=== PATIENT | male | born 1940 | race Hispanic/Latino ===

== ENCOUNTER 2021-07-18 17:52 | Inpatient (IN) | payer MEDICARE, OTHER ==
[~2021-07-18] VITALS: Ht 167.6 cm; Wt 66.6 kg
[2021-07-18 18:04] LABS: ABG BASE EXCESS 0.9 mmol/L (-2.0-3.0); ABG OXYGEN SATURATION 90.4 % (95.0-99.0); ABG PCO2 34 mmHg (35-48)
[2021-07-18 18:18] LABS: BASOPHILS % (AUTO) 0.2 % (0.0-5.0); EOSINOPHILS % (AUTO) 0.1 % (0.0-8.0); HEMATOCRIT 42.2 % (42-54); LYMPHOCYTES % (AUTO) 11.2 % (21.0-51.0); MEAN CORPUSCULAR HGB CONC 33.6 g/dL (32.0-36.0); MONOCYTES % (AUTO) 4.7 % (3.0-13.0); PLATELET COUNT (AUTO) 256 K/uL (130-400); RED BLOOD CELL COUNT(AUTO) 4.74 MIL/uL (4.50-6.20); RED CELL DISTRIBUTION WIDTH 13.8 % (11.0-15.5); WHITE BLOOD COUNT (AUTO) 9.9 K/uL (4.8-10.8)
[2021-07-18] MEDS ORDERED: ACETAMINOPHEN 650 MG SUPPOSITORY RC ONE (18:19)
[2021-07-18] MEDS ORDERED: ACETAMINOPHEN 500 MG TABLET PO SCH (18:30)
[2021-07-18 18:35] LABS: CARBON DIOXIDE 26 mmol/L (21-32); CHLORIDE 102 mmol/L (101-111); CREATININE 2.9 mg/dL (0.5-1.5); GLOMERULAR FILTR. RATE CALC 22 mL/min (>60); GLUCOSE,RANDOM 201 mg/dL (70-105); SODIUM SERUM 140 mmol/L (136-145); UREA NITROGEN, BLOOD 68 mg/dL (7-18)
[2021-07-18 18:46] LABS: ALANINE AMINOTRANSFERASE 67 U/L (12-78); ALBUMIN 2.6 g/dL (3.5-5.0); ALCOHOL, BLOOD < 3 mg/dL (0-10); ASPARTATE AMINOTRANSFERASE 112 U/L (10-37); BILIRUBIN,TOTAL 1.4 mg/dL (0.2-1.0); CREATINE KINASE, TOTAL 129 U/L (21-232); MYOGLOBIN 696 ng/mL (10-92); TROPONIN I < 0.04 ng/mL (0.00-0.06)
[2021-07-18 18:46] LABS: APPEARANCE,URINE Cloudy (CLEAR); BILIRUBIN,URINE Small (NEGATIVE); COLOR,URINE Dark Yellow (YELLOW); GLUCOSE, URINE (UA) Negative (NEGATIVE); KETONES,URINE Trace mg/dL (NEGATIVE); LEUKOCYTE ESTERASE ,URINE Trace (NEGATIVE); NITRATE,URINE Negative (NEGATIVE); OCCULT BLOOD,URINE Trace (NEGATIVE); PROTEIN,URINE POS 2+ mg/dL (NEGATIVE)
[2021-07-18 18:53] LABS: AMPHET/METH SCREEN,URINE NEGATIVE (NEGATIVE); BARBITURATE SCREEN, URINE NEGATIVE (NEGATIVE); BENZODIAZEPINES SCREEN,URINE NEGATIVE (NEGATIVE); CANNABINOID SCREEN,URINE NEGATIVE (NEGATIVE); COCAINE SCREEN,URINE NEGATIVE (NEGATIVE); OPIATE SCREEN,URINE NEGATIVE (NEGATIVE); PHENCYCLIDINE SCREEN,URINE NEGATIVE (NEGATIVE)
[2021-07-18 19:06] LABS: AMORPHOUS SEDIMENT,UR Moderate /LPF (None Seen); BACTERIA,URINE Few /HPF (None Seen); MUCUS,URINE Few LPF (None Seen); SQUAMOUS EPITHELIAL CELL,UR Few /HPF (0-2)
[2021-07-18] MEDS ORDERED: ACETAMINOPHEN 325 MG TAB PO PRN (19:30)
[2021-07-18] MEDS ORDERED: 0.9%NACL 1000ML 1,000 ML IV SCH (19:30)
[2021-07-18] MEDS ORDERED: ERGOCALCIFEROL (VITAMIN D2) 50,000 UNIT CAPSULE PO ONE (19:30)
[2021-07-18] MEDS: DOXYCYCLINE 100MG+NS 250ML IV SCH (19:30)
[2021-07-18] MEDS: PHARMACY COMMUNICATION MISC SCH (20:39)
[2021-07-18] MEDS: DEXAMETHASONE SOD PHOSPHATE 4 MG/ML 1ML VIAL IVP SCH (20:49)
[2021-07-18] MEDS: LACTATED RINGERS 1000ML 1,000 ML IV SCH (20:49)
[2021-07-18] MEDS: ALBUTEROL INHALER 90MCG/INH IH SCH (20:49)
[2021-07-18] MEDS: CEFTRIAXONE 1G VIAL IVP SCH (20:58)
[2021-07-18] MEDS: HEPARIN 5,000 UNIT VIAL SQ SCH (21:32)
[2021-07-18 22:45] VITALS: BP 108/53
[2021-07-19] VITALS (7 sets, daily range): BP systolic 105–136; BP diastolic 62–88
[2021-07-19] MEDS: ALBUTEROL INHALER 90MCG/INH IH SCH ×4 (01:31→20:23)
[2021-07-19] MEDS: PHARMACY COMMUNICATION MISC SCH ×8 (03:10→22:00)
[2021-07-19] MEDS ORDERED: AMOX500C2 PO (03:34)
[2021-07-19] MEDS ORDERED: ACET-3194 PO (03:34)
[2021-07-19] MEDS ORDERED: MULT-1203 PO (03:34)
[2021-07-19] MEDS: DOXYCYCLINE 100MG+NS 250ML IV SCH ×2 (06:30→20:22)
[2021-07-19] MEDS: CEFTRIAXONE 1G VIAL IVP SCH ×2 (06:31→20:22)
[2021-07-19] MEDS: FAMOTIDINE 20MG TAB PO SCH (08:16)
[2021-07-19] MEDS: ZINC SULFATE 220 CAPSULE PO SCH (08:16)
[2021-07-19] MEDS: ASCORBIC ACID 500 MG TAB PO SCH (08:16)
[2021-07-19] MEDS: HEPARIN 5,000 UNIT VIAL SQ SCH ×3 (08:17→19:28)
[2021-07-19 08:25] LABS: ALBUMIN 2.3 g/dL (3.5-5.0); BILIRUBIN,TOTAL 0.7 mg/dL (0.2-1.0); CREATININE 2.5 mg/dL (0.5-1.5); TOTAL PROTEIN, SERUM 7.6 g/dL (6.0-8.3)
[2021-07-19 08:58] LABS: CRP QUANTITATIVE 201.5 mg/L (0.00-9.0)
[2021-07-19 11:16] LABS: ABG BASE EXCESS -2.5 mmol/L (-2.0-3.0); ABG HCO3 21.4 mmol/L (21.0-28.0); ABG OXYGEN SATURATION 93.3 % (95.0-99.0); ABG PCO2 35 mmHg (35-48)
[2021-07-19 19:24] LABS: BASOPHILS % (AUTO) 0.2 % (0.0-5.0); HEMATOCRIT 38.1 % (42-54); LYMPHOCYTES % (AUTO) 7.1 % (21.0-51.0); MEAN CORPUSCULAR HGB CONC 32.8 g/dL (32.0-36.0); MEAN CORPUSCULAR VOLUME 91.4 fL (79-99); MONOCYTES % (AUTO) 4.2 % (3.0-13.0); NEUTROPHILS % (AUTO) 87.8 % (40.0-77.0); PLATELET COUNT (AUTO) 243 K/uL (130-400); RED BLOOD CELL COUNT(AUTO) 4.17 MIL/uL (4.50-6.20); RED CELL DISTRIBUTION WIDTH 13.9 % (11.0-15.5); WHITE BLOOD COUNT (AUTO) 11.4 K/uL (4.8-10.8)
[2021-07-19] MEDS: DEXAMETHASONE SOD PHOSPHATE 4 MG/ML 1ML VIAL IVP SCH (20:22)
[2021-07-20] MEDS: PHARMACY COMMUNICATION MISC SCH ×4 (01:10→04:30)
[2021-07-20] MEDS: ALBUTEROL INHALER 90MCG/INH IH SCH ×4 (01:10→20:45)
[2021-07-20 03:46] VITALS: BP 108/57
[2021-07-20] MEDS: LACTATED RINGERS 1000ML 1,000 ML IV SCH ×3 (04:48→11:16)
[2021-07-20 05:46] LABS: BASOPHILS % (AUTO) 0.2 % (0.0-5.0); HEMATOCRIT 39.6 % (42-54); LYMPHOCYTES % (AUTO) 6.3 % (21.0-51.0); MEAN CORPUSCULAR HEMOGLOBIN 29.9 pg (27.0-33.0); MEAN CORPUSCULAR HGB CONC 33.1 g/dL (32.0-36.0); MEAN CORPUSCULAR VOLUME 90.4 fL (79-99); MONOCYTES % (AUTO) 2.7 % (3.0-13.0); NEUTROPHILS % (AUTO) 89.9 % (40.0-77.0); PLATELET COUNT (AUTO) 264 K/uL (130-400); RED BLOOD CELL COUNT(AUTO) 4.38 MIL/uL (4.50-6.20); RED CELL DISTRIBUTION WIDTH 13.7 % (11.0-15.5); WHITE BLOOD COUNT (AUTO) 11.7 K/uL (4.8-10.8)
[2021-07-20 06:05] LABS: ALBUMIN 2.3 g/dL (3.5-5.0); BILIRUBIN,TOTAL 0.5 mg/dL (0.2-1.0); CREATININE 1.7 mg/dL (0.5-1.5); CRP QUANTITATIVE 95.3 mg/L (0.00-9.0); MAGNESIUM 2.4 mg/dL (1.80-2.40); PHOSPHORUS 3.6 mg/dL (2.5-4.9); POTASSIUM 4.2 mmol/L (3.5-5.1); TOTAL PROTEIN, SERUM 7.1 g/dL (6.0-8.3); URIC ACID 7.4 mg/dL (2.6-7.2)
[2021-07-20] MEDS: DOXYCYCLINE 100MG+NS 250ML IV SCH ×2 (06:28→18:13)
[2021-07-20] MEDS: CEFTRIAXONE 1G VIAL IVP SCH ×2 (06:28→18:13)
[2021-07-20 08:00] VITALS: BP 155/92
[2021-07-20] MEDS: HEPARIN 5,000 UNIT VIAL SQ SCH ×3 (08:04→20:44)
[2021-07-20] MEDS: Vitamin B Complex/Vit C/Folic Acid PO SCH (08:06)
[2021-07-20] MEDS: ASCORBIC ACID 500 MG TAB PO SCH (08:06)
[2021-07-20] MEDS: ZINC SULFATE 220 CAPSULE PO SCH (08:06)
[2021-07-20] MEDS: FAMOTIDINE 20MG TAB PO SCH (08:06)
[2021-07-20 11:00] VITALS: BP 139/81
[2021-07-20] MEDS ORDERED: PHARMACY COMMUNICATION MISC SCH (11:30)
[2021-07-20] MEDS ORDERED: REMDESIVIR (EUA) 520 200 MG in 0.9% NACL 250ML 250 ML IV ONE (14:00)
[2021-07-20] MEDS ORDERED: COMPOUND IV REFRIGERATED 1 EACH IVSOLN MISC PRN (14:00)
[2021-07-20 16:00] VITALS: BP 125/62
[2021-07-20] MEDS: DEXAMETHASONE SOD PHOSPHATE 4 MG/ML 1ML VIAL IVP SCH (18:14)
[2021-07-20 20:10] VITALS: BP 156/87
[2021-07-20 23:50] VITALS: BP 127/57
[2021-07-21] MEDS: ALBUTEROL INHALER 90MCG/INH IH SCH ×4 (00:46→20:50)
[2021-07-21] MEDS: LACTATED RINGERS 1000ML 1,000 ML IV SCH (00:46)
[2021-07-21 04:00] VITALS: BP 130/61
[2021-07-21 04:47] LABS: BASOPHILS % (AUTO) 0.2 % (0.0-5.0); HEMATOCRIT 40.9 % (42-54); LYMPHOCYTES % (AUTO) 5.7 % (21.0-51.0); MEAN CORPUSCULAR HEMOGLOBIN 29.3 pg (27.0-33.0); MEAN CORPUSCULAR HGB CONC 32.3 g/dL (32.0-36.0); MEAN CORPUSCULAR VOLUME 90.9 fL (79-99); MONOCYTES % (AUTO) 4.9 % (3.0-13.0); NEUTROPHILS % (AUTO) 88.3 % (40.0-77.0); PLATELET COUNT (AUTO) 295 K/uL (130-400); RED CELL DISTRIBUTION WIDTH 13.7 % (11.0-15.5); WHITE BLOOD COUNT (AUTO) 9.2 K/uL (4.8-10.8)
[2021-07-21 05:00] LABS: ALBUMIN 2.3 g/dL (3.5-5.0); BILIRUBIN,TOTAL 0.4 mg/dL (0.2-1.0); CREATININE 1.3 mg/dL (0.5-1.5); CRP QUANTITATIVE 49.7 mg/L (0.00-9.0); POTASSIUM 3.8 mmol/L (3.5-5.1); TOTAL PROTEIN, SERUM 6.8 g/dL (6.0-8.3)
[2021-07-21] MEDS ORDERED: 0.9% NACL 250ML 250 ML ONE (06:18)
[2021-07-21] MEDS: DOXYCYCLINE 100MG+NS 250ML IV SCH ×2 (06:53→19:16)
[2021-07-21] MEDS: CEFTRIAXONE 1G VIAL IVP SCH ×2 (06:53→19:16)
[2021-07-21] MEDS: REMDESIVIR LABS MISC SCH (06:54)
[2021-07-21 07:00] VITALS: BP 142/84
[2021-07-21] MEDS: HEPARIN 5,000 UNIT VIAL SQ SCH ×3 (09:15→20:48)
[2021-07-21] MEDS: ZINC SULFATE 220 CAPSULE PO SCH (09:41)
[2021-07-21] MEDS: FAMOTIDINE 20MG TAB PO SCH (09:41)
[2021-07-21] MEDS: Vitamin B Complex/Vit C/Folic Acid PO SCH (09:41)
[2021-07-21] MEDS: ASCORBIC ACID 500 MG TAB PO SCH (09:41)
[2021-07-21 11:00] VITALS: BP 155/96
[2021-07-21] MEDS: REMDESIVIR (EUA) 520 100 MG in 0.9% NACL 250ML 250 ML IV SCH (13:45)
[2021-07-21 16:00] VITALS: BP 159/91
[2021-07-21] MEDS: DEXAMETHASONE SOD PHOSPHATE 4 MG/ML 1ML VIAL IVP SCH (19:16)
[2021-07-21 20:04] VITALS: BP 101/66
[2021-07-21 20:16] VITALS: BP 146/86
[2021-07-22] VITALS (7 sets, daily range): BP systolic 132–152; BP diastolic 66–91
[2021-07-22] MEDS: ALBUTEROL INHALER 90MCG/INH IH SCH ×4 (02:12→20:38)
[2021-07-22 04:40] LABS: HEMATOCRIT 41.5 % (42-54); MEAN CORPUSCULAR HEMOGLOBIN 29.6 pg (27.0-33.0); MEAN CORPUSCULAR HGB CONC 33.3 g/dL (32.0-36.0); MEAN CORPUSCULAR VOLUME 89.1 fL (79-99); RED BLOOD CELL COUNT(AUTO) 4.66 MIL/uL (4.50-6.20); RED CELL DISTRIBUTION WIDTH 13.7 % (11.0-15.5); WHITE BLOOD COUNT (AUTO) 6.5 K/uL (4.8-10.8)
[2021-07-22 05:09] LABS: ALBUMIN 2.4 g/dL (3.5-5.0); BILIRUBIN,TOTAL 0.5 mg/dL (0.2-1.0); CREATININE 1.1 mg/dL (0.5-1.5); MAGNESIUM 1.8 mg/dL (1.80-2.40); PHOSPHORUS 3.7 mg/dL (2.5-4.9); POTASSIUM 4.1 mmol/L (3.5-5.1); TOTAL PROTEIN, SERUM 6.8 g/dL (6.0-8.3)
[2021-07-22] MEDS: REMDESIVIR LABS MISC SCH (06:19)
[2021-07-22] MEDS: DOXYCYCLINE 100MG+NS 250ML IV SCH ×2 (06:19→20:37)
[2021-07-22] MEDS: CEFTRIAXONE 1G VIAL IVP SCH ×2 (06:19→20:37)
[2021-07-22] MEDS: ZINC SULFATE 220 CAPSULE PO SCH (08:21)
[2021-07-22] MEDS: FAMOTIDINE 20MG TAB PO SCH (08:21)
[2021-07-22] MEDS: Vitamin B Complex/Vit C/Folic Acid PO SCH (08:21)
[2021-07-22] MEDS: ASCORBIC ACID 500 MG TAB PO SCH (08:21)
[2021-07-22] MEDS: HEPARIN 5,000 UNIT VIAL SQ SCH ×3 (08:31→20:39)
[2021-07-22] MEDS: REMDESIVIR (EUA) 520 100 MG in 0.9% NACL 250ML 250 ML IV SCH (14:30)
[2021-07-22] MEDS: DEXAMETHASONE SOD PHOSPHATE 4 MG/ML 1ML VIAL IVP SCH (20:37)
[2021-07-23] MEDS: ALBUTEROL INHALER 90MCG/INH IH SCH ×4 (02:59→20:09)
[2021-07-23 04:14] VITALS: BP 140/86
[2021-07-23 05:16] LABS: HEMATOCRIT 41.2 % (42-54); MEAN CORPUSCULAR HEMOGLOBIN 29.3 pg (27.0-33.0); MEAN CORPUSCULAR HGB CONC 32.5 g/dL (32.0-36.0); MEAN CORPUSCULAR VOLUME 90.2 fL (79-99); RED BLOOD CELL COUNT(AUTO) 4.57 MIL/uL (4.50-6.20); RED CELL DISTRIBUTION WIDTH 13.8 % (11.0-15.5); WHITE BLOOD COUNT (AUTO) 7.2 K/uL (4.8-10.8)
[2021-07-23 05:37] LABS: CREATININE 1.1 mg/dL (0.5-1.5); CRP QUANTITATIVE 79.9 mg/L (0.00-9.0); POTASSIUM 4.2 mmol/L (3.5-5.1)
[2021-07-23] MEDS: CEFTRIAXONE 1G VIAL IVP SCH ×2 (06:36→19:32)
[2021-07-23] MEDS: DOXYCYCLINE 100MG+NS 250ML IV SCH ×2 (06:36→19:32)
[2021-07-23] MEDS: REMDESIVIR LABS MISC SCH (06:36)
[2021-07-23 08:00] VITALS: BP 136/81
[2021-07-23] MEDS: ZINC SULFATE 220 CAPSULE PO SCH (08:11)
[2021-07-23] MEDS: FAMOTIDINE 20MG TAB PO SCH (08:11)
[2021-07-23] MEDS: ASCORBIC ACID 500 MG TAB PO SCH (08:11)
[2021-07-23] MEDS: Vitamin B Complex/Vit C/Folic Acid PO SCH (08:11)
[2021-07-23] MEDS: HEPARIN 5,000 UNIT VIAL SQ SCH ×3 (08:13→21:48)
[2021-07-23 12:00] VITALS: BP 131/78
[2021-07-23] MEDS ORDERED: ACETAMINOPHEN 325 MG TAB PO PRN (12:30)
[2021-07-23] MEDS: LACTULOSE 20 GM/30 ML UDCUP PO PRN (13:58)
[2021-07-23] MEDS: REMDESIVIR (EUA) 520 100 MG in 0.9% NACL 250ML 250 ML IV SCH (13:58)
[2021-07-23] MEDS: CLOTRIMAZOLE 10 MG TROCHE MM SCH ×2 (14:00→17:23)
[2021-07-23 16:00] VITALS: BP 133/80
[2021-07-23] MEDS: DEXAMETHASONE SOD PHOSPHATE 4 MG/ML 1ML VIAL IVP SCH (19:53)
[2021-07-23 20:05] VITALS: BP 100/59
[2021-07-23] MEDS: CLOTRIMAZOLE/BETAMETHASONE DIP 45 GM CREAM.GM. TP SCH (21:46)
[2021-07-23 23:44] VITALS: BP 135/86
[2021-07-24] MEDS: CLOTRIMAZOLE 10 MG TROCHE MM SCH ×5 (00:44→23:30)
[2021-07-24] MEDS: ALBUTEROL INHALER 90MCG/INH IH SCH ×4 (01:02→20:22)
[2021-07-24 03:19] VITALS: BP 136/77
[2021-07-24 05:03] LABS: HEMATOCRIT 42.6 % (42-54); MEAN CORPUSCULAR HEMOGLOBIN 29.7 pg (27.0-33.0); MEAN CORPUSCULAR HGB CONC 33.1 g/dL (32.0-36.0); MEAN CORPUSCULAR VOLUME 89.7 fL (79-99); RED BLOOD CELL COUNT(AUTO) 4.75 MIL/uL (4.50-6.20); RED CELL DISTRIBUTION WIDTH 13.9 % (11.0-15.5); WHITE BLOOD COUNT (AUTO) 8.8 K/uL (4.8-10.8)
[2021-07-24 05:27] LABS: CREATININE 1.1 mg/dL (0.5-1.5); MAGNESIUM 1.8 mg/dL (1.80-2.40); POTASSIUM 3.7 mmol/L (3.5-5.1); THYROID STIMULATING HORMONE 3.44 uIU/mL (0.36-3.74)
[2021-07-24] MEDS: DOXYCYCLINE 100MG+NS 250ML IV SCH ×2 (07:12→17:55)
[2021-07-24] MEDS: REMDESIVIR LABS MISC SCH (07:12)
[2021-07-24] MEDS: CEFTRIAXONE 1G VIAL IVP SCH ×2 (07:12→17:55)
[2021-07-24 08:00] VITALS: BP 141/83
[2021-07-24] MEDS: CLOTRIMAZOLE/BETAMETHASONE DIP 45 GM CREAM.GM. TP SCH ×2 (08:36→20:23)
[2021-07-24] MEDS: ASCORBIC ACID 500 MG TAB PO SCH (08:36)
[2021-07-24] MEDS: ZINC SULFATE 220 CAPSULE PO SCH (08:36)
[2021-07-24] MEDS: Vitamin B Complex/Vit C/Folic Acid PO SCH (08:36)
[2021-07-24] MEDS: FAMOTIDINE 20MG TAB PO SCH (08:36)
[2021-07-24] MEDS: HEPARIN 5,000 UNIT VIAL SQ SCH ×3 (08:37→20:39)
[2021-07-24 12:00] VITALS: BP 91/31
[2021-07-24] MEDS: REMDESIVIR (EUA) 520 100 MG in 0.9% NACL 250ML 250 ML IV SCH (14:36)
[2021-07-24 15:59] LABS: APPEARANCE,URINE Clear (CLEAR); BILIRUBIN,URINE Negative (NEGATIVE); COLOR,URINE Dark Yellow (YELLOW); GLUCOSE, URINE (UA) Negative (NEGATIVE); KETONES,URINE Trace mg/dL (NEGATIVE); LEUKOCYTE ESTERASE ,URINE Small (NEGATIVE); NITRATE,URINE Negative (NEGATIVE); OCCULT BLOOD,URINE Negative (NEGATIVE); PH,URINE 5.5 (5.0-8.0); PROTEIN,URINE POS 1+ mg/dL (NEGATIVE)
[2021-07-24 16:00] VITALS: BP 134/90
[2021-07-24 16:15] LABS: RBC,URINE None Seen /HPF (0-1)
[2021-07-24 16:16] LABS: BACTERIA,URINE Few /HPF (None Seen); SQUAMOUS EPITHELIAL CELL,UR None Seen /HPF (0-2)
[2021-07-24] MEDS: DEXAMETHASONE SOD PHOSPHATE 4 MG/ML 1ML VIAL IVP SCH (17:55)
[2021-07-24 20:05] VITALS: BP 121/74
[2021-07-24 23:53] VITALS: BP 111/62
[2021-07-25] MEDS: ALBUTEROL INHALER 90MCG/INH IH SCH ×4 (04:53→20:11)
[2021-07-25] MEDS: CLOTRIMAZOLE 10 MG TROCHE MM SCH ×4 (04:57→23:16)
[2021-07-25 04:58] VITALS: BP 128/71
[2021-07-25] MEDS: DOXYCYCLINE 100MG+NS 250ML IV SCH (06:02)
[2021-07-25] MEDS: CEFTRIAXONE 1G VIAL IVP SCH (06:02)
[2021-07-25 06:08] LABS: HEMATOCRIT 41.9 % (42-54); MEAN CORPUSCULAR HEMOGLOBIN 29.8 pg (27.0-33.0); MEAN CORPUSCULAR HGB CONC 32.5 g/dL (32.0-36.0); MEAN CORPUSCULAR VOLUME 91.7 fL (79-99); RED BLOOD CELL COUNT(AUTO) 4.57 MIL/uL (4.50-6.20); RED CELL DISTRIBUTION WIDTH 14.2 % (11.0-15.5); WHITE BLOOD COUNT (AUTO) 7.1 K/uL (4.8-10.8)
[2021-07-25 06:30] LABS: CRP QUANTITATIVE 59.2 mg/L (0.00-9.0); POTASSIUM 4.6 mmol/L (3.5-5.1)
[2021-07-25 06:51] VITALS: BP 125/81
[2021-07-25] MEDS: Vitamin B Complex/Vit C/Folic Acid PO SCH (09:10)
[2021-07-25] MEDS: FAMOTIDINE 20MG TAB PO SCH (09:10)
[2021-07-25] MEDS: ASCORBIC ACID 500 MG TAB PO SCH (09:10)
[2021-07-25] MEDS: CLOTRIMAZOLE/BETAMETHASONE DIP 45 GM CREAM.GM. TP SCH ×2 (09:10→20:16)
[2021-07-25] MEDS: ZINC SULFATE 220 CAPSULE PO SCH (09:10)
[2021-07-25] MEDS: HEPARIN 5,000 UNIT VIAL SQ SCH ×3 (09:21→20:09)
[2021-07-25 12:00] VITALS: BP 130/74
[2021-07-25 16:00] VITALS: BP 135/78
[2021-07-25] MEDS: DEXAMETHASONE SOD PHOSPHATE 4 MG/ML 1ML VIAL IVP SCH (18:35)
[2021-07-25 20:14] VITALS: BP 143/80
[2021-07-25 23:47] VITALS: BP 118/71
[2021-07-26] MEDS: ALBUTEROL INHALER 90MCG/INH IH SCH ×4 (02:24→19:56)
[2021-07-26 05:07] VITALS: BP 126/72
[2021-07-26 05:17] LABS: HEMATOCRIT 38.1 % (42-54); MEAN CORPUSCULAR HEMOGLOBIN 29.5 pg (27.0-33.0); MEAN CORPUSCULAR HGB CONC 32.8 g/dL (32.0-36.0); MEAN CORPUSCULAR VOLUME 89.9 fL (79-99); RED BLOOD CELL COUNT(AUTO) 4.24 MIL/uL (4.50-6.20); RED CELL DISTRIBUTION WIDTH 14.1 % (11.0-15.5); WHITE BLOOD COUNT (AUTO) 7.9 K/uL (4.8-10.8)
[2021-07-26] MEDS: CLOTRIMAZOLE 10 MG TROCHE MM SCH ×4 (05:21→23:29)
[2021-07-26 05:31] LABS: CREATININE 1.1 mg/dL (0.5-1.5); POTASSIUM 4.2 mmol/L (3.5-5.1)
[2021-07-26 08:00] VITALS: BP 126/70
[2021-07-26] MEDS: CLOTRIMAZOLE/BETAMETHASONE DIP 45 GM CREAM.GM. TP SCH ×3 (09:00→19:57)
[2021-07-26] MEDS: ZINC SULFATE 220 CAPSULE PO SCH (09:27)
[2021-07-26] MEDS: Vitamin B Complex/Vit C/Folic Acid PO SCH (09:27)
[2021-07-26] MEDS: FAMOTIDINE 20MG TAB PO SCH (09:27)
[2021-07-26] MEDS: ASCORBIC ACID 500 MG TAB PO SCH (09:27)
[2021-07-26] MEDS: HEPARIN 5,000 UNIT VIAL SQ SCH ×3 (09:34→19:55)
[2021-07-26 12:09] VITALS: BP 131/79
[2021-07-26] MEDS: DEXAMETHASONE SOD PHOSPHATE 4 MG/ML 1ML VIAL IVP SCH (18:20)
[2021-07-26 18:36] VITALS: BP 125/56
[2021-07-26 19:31] VITALS: BP 133/75
[2021-07-26] MEDS ORDERED: MIRTAZAPINE 15 MG TABLET PO SCH (21:00)
[2021-07-26 23:19] VITALS: BP 96/56
[2021-07-27] MEDS: ALBUTEROL INHALER 90MCG/INH IH SCH ×4 (02:25→20:07)
[2021-07-27 03:21] VITALS: BP 99/57
[2021-07-27] MEDS: CLOTRIMAZOLE 10 MG TROCHE MM SCH ×4 (05:22→23:54)
[2021-07-27 06:49] LABS: BASOPHILS % (AUTO) 0.2 % (0.0-5.0); EOSINOPHILS % (AUTO) 0.2 % (0.0-8.0); HEMATOCRIT 37.8 % (42-54); LYMPHOCYTES % (AUTO) 14.8 % (21.0-51.0); MEAN CORPUSCULAR HEMOGLOBIN 29.4 pg (27.0-33.0); MEAN CORPUSCULAR HGB CONC 32.5 g/dL (32.0-36.0); MEAN CORPUSCULAR VOLUME 90.4 fL (79-99); MONOCYTES % (AUTO) 5.6 % (3.0-13.0); NEUTROPHILS % (AUTO) 77.5 % (40.0-77.0); PLATELET COUNT (AUTO) 315 K/uL (130-400); RED BLOOD CELL COUNT(AUTO) 4.18 MIL/uL (4.50-6.20); WHITE BLOOD COUNT (AUTO) 6.4 K/uL (4.8-10.8)
[2021-07-27 07:02] LABS: CRP QUANTITATIVE 14.9 mg/L (0.00-9.0); POTASSIUM 4.4 mmol/L (3.5-5.1)
[2021-07-27 07:35] VITALS: BP 104/49
[2021-07-27] MEDS: FAMOTIDINE 20MG TAB PO SCH (08:22)
[2021-07-27] MEDS: Vitamin B Complex/Vit C/Folic Acid PO SCH (08:22)
[2021-07-27] MEDS: ZINC SULFATE 220 CAPSULE PO SCH (08:22)
[2021-07-27] MEDS: ASCORBIC ACID 500 MG TAB PO SCH (08:22)
[2021-07-27] MEDS: CLOTRIMAZOLE/BETAMETHASONE DIP 45 GM CREAM.GM. TP SCH ×2 (08:32→20:07)
[2021-07-27] MEDS: HEPARIN 5,000 UNIT VIAL SQ SCH ×3 (08:33→20:03)
[2021-07-27 11:47] VITALS: BP 118/70
[2021-07-27] MEDS: LACTATED RINGERS 1000ML 1,000 ML IV SCH (12:02)
[2021-07-27 16:00] VITALS: BP 115/63
[2021-07-27] MEDS ORDERED: THIAMINE HCL 100 MG/ML 2ML VIAL IVP SCH ×2 (18:30→20:00)
[2021-07-27] MEDS ORDERED: FOLIC ACID 1 MG TABLET PO SCH ×2 (18:30→20:00)
[2021-07-27 19:36] VITALS: BP 137/69
[2021-07-27] MEDS: DEXAMETHASONE SOD PHOSPHATE 4 MG/ML 1ML VIAL IVP SCH (19:54)
[2021-07-27] MEDS ORDERED: DRONABINOL 2.5 MG CAP PO ONE (20:00)
[2021-07-27] MEDS: DRONABINOL 2.5 MG CAP PO SCH (20:02)
[2021-07-27 23:30] VITALS: BP 115/63
[2021-07-28] MEDS: ALBUTEROL INHALER 90MCG/INH IH SCH ×4 (01:38→21:14)
[2021-07-28 04:00] VITALS: BP 134/74
[2021-07-28] MEDS: LACTATED RINGERS 1000ML 1,000 ML IV SCH (04:06)
[2021-07-28] MEDS: CLOTRIMAZOLE 10 MG TROCHE MM SCH ×3 (05:28→18:11)
[2021-07-28 07:32] LABS: BASOPHILS % (AUTO) 0.1 % (0.0-5.0); HEMATOCRIT 39.5 % (42-54); LYMPHOCYTES % (AUTO) 10.4 % (21.0-51.0); MEAN CORPUSCULAR HEMOGLOBIN 29.6 pg (27.0-33.0); MEAN CORPUSCULAR HGB CONC 32.7 g/dL (32.0-36.0); MEAN CORPUSCULAR VOLUME 90.6 fL (79-99); MONOCYTES % (AUTO) 5.1 % (3.0-13.0); NEUTROPHILS % (AUTO) 83.2 % (40.0-77.0); PLATELET COUNT (AUTO) 290 K/uL (130-400); RED BLOOD CELL COUNT(AUTO) 4.36 MIL/uL (4.50-6.20); WHITE BLOOD COUNT (AUTO) 6.7 K/uL (4.8-10.8)
[2021-07-28 07:38] LABS: CRP QUANTITATIVE 7.3 mg/L (0.00-9.0); POTASSIUM 4.4 mmol/L (3.5-5.1)
[2021-07-28 08:00] VITALS: BP 137/82
[2021-07-28] MEDS: HEPARIN 5,000 UNIT VIAL SQ SCH ×3 (08:42→20:43)
[2021-07-28] MEDS: CLOTRIMAZOLE/BETAMETHASONE DIP 45 GM CREAM.GM. TP SCH ×2 (08:44→21:15)
[2021-07-28] MEDS: FOLIC ACID 1 MG TABLET PO SCH (08:44)
[2021-07-28] MEDS: FAMOTIDINE 20MG TAB PO SCH (08:44)
[2021-07-28] MEDS: Vitamin B Complex/Vit C/Folic Acid PO SCH (08:44)
[2021-07-28] MEDS: ZINC SULFATE 220 CAPSULE PO SCH (08:44)
[2021-07-28] MEDS: ASCORBIC ACID 500 MG TAB PO SCH (08:44)
[2021-07-28] MEDS: THIAMINE HCL 100 MG/ML 2ML VIAL IVP SCH (08:45)
[2021-07-28 12:00] VITALS: BP 112/76
[2021-07-28] MEDS: LACTULOSE 20 GM/30 ML UDCUP PO PRN (12:11)
[2021-07-28 16:00] VITALS: BP 111/63
[2021-07-28] MEDS: DEXAMETHASONE SOD PHOSPHATE 4 MG/ML 1ML VIAL IVP SCH (18:11)
[2021-07-28 19:53] VITALS: BP 115/65
[2021-07-28] MEDS: DRONABINOL 2.5 MG CAP PO SCH (20:28)
[2021-07-29 00:17] VITALS: BP 123/71
[2021-07-29] MEDS: CLOTRIMAZOLE 10 MG TROCHE MM SCH ×4 (00:21→17:44)
[2021-07-29] MEDS: ALBUTEROL INHALER 90MCG/INH IH SCH ×3 (02:17→14:00)
[2021-07-29 04:00] VITALS: BP 117/72
[2021-07-29 07:15] VITALS: BP 118/73
[2021-07-29 08:56] LABS: BASOPHILS % (AUTO) 0.1 % (0.0-5.0); EOSINOPHILS % (AUTO) 0.5 % (0.0-8.0); HEMATOCRIT 41.9 % (42-54); MEAN CORPUSCULAR HEMOGLOBIN 29.7 pg (27.0-33.0); MEAN CORPUSCULAR HGB CONC 32.9 g/dL (32.0-36.0); MEAN CORPUSCULAR VOLUME 90.3 fL (79-99); MONOCYTES % (AUTO) 7.2 % (3.0-13.0); NEUTROPHILS % (AUTO) 75.3 % (40.0-77.0); PLATELET COUNT (AUTO) 244 K/uL (130-400); RED BLOOD CELL COUNT(AUTO) 4.64 MIL/uL (4.50-6.20); RED CELL DISTRIBUTION WIDTH 13.8 % (11.0-15.5); WHITE BLOOD COUNT (AUTO) 7.8 K/uL (4.8-10.8)
[2021-07-29] MEDS: FOLIC ACID 1 MG TABLET PO SCH (09:06)
[2021-07-29] MEDS: Vitamin B Complex/Vit C/Folic Acid PO SCH (09:06)
[2021-07-29] MEDS: ZINC SULFATE 220 CAPSULE PO SCH (09:07)
[2021-07-29] MEDS: THIAMINE HCL 100 MG/ML 2ML VIAL IVP SCH (09:07)
[2021-07-29] MEDS: FAMOTIDINE 20MG TAB PO SCH (09:07)
[2021-07-29] MEDS: ASCORBIC ACID 500 MG TAB PO SCH (09:07)
[2021-07-29] MEDS: CLOTRIMAZOLE/BETAMETHASONE DIP 45 GM CREAM.GM. TP SCH (09:10)
[2021-07-29] MEDS: HEPARIN 5,000 UNIT VIAL SQ SCH ×2 (09:10→16:24)
[2021-07-29 09:11] LABS: CRP QUANTITATIVE 5.6 mg/L (0.00-9.0); POTASSIUM 3.5 mmol/L (3.5-5.1)
[2021-07-29 11:05] VITALS: BP 111/70
[2021-07-29] MEDS ORDERED: POLYETHYLENE GLYCOL 3350 17 GM POWD.PACK PO ONE (14:50)
[2021-07-29 15:40] VITALS: BP 137/79
[2021-07-29] MEDS ORDERED: POLYETHYLENE GLYCOL 3350 17 GM POWD.PACK ONE (16:20)
[2021-07-29] MEDS ORDERED: PANT40TA55 PO (18:03)
[2021-07-29] MEDS ORDERED: APIX2.5T PO (18:03)
== END 2021-07-29 18:45 | disposition home or self-care (01) | DRG 871 ==
LOC: EDH 17:52 → EDHIP 19:29 → 4BH 07-19 01:02
PROVIDERS: ADMIT Family Medicine; ATTEND Family Medicine
PROC: XW033E5 Introduction of Remdesivir Anti-infective into Peripheral Vein, Percutaneous Approach, New Technology Group 5 (ICD-10-PCS; principal; 2021-07-20)
DX: A41.89 Other specified sepsis (principal); U07.1 COVID-19; J12.82 Pneumonia due to coronavirus disease 2019; N17.0 Acute kidney failure with tubular necrosis; J80 Acute respiratory distress syndrome; G93.41 Metabolic encephalopathy; E87.0 Hyperosmolality and hypernatremia; D68.69 Other thrombophilia; B97.89 Other viral agents as the cause of diseases classified elsewhere; N47.1 Phimosis; N48.0 Leukoplakia of penis; K59.00 Constipation, unspecified; R54 Age-related physical debility; E87.8 Other disorders of electrolyte and fluid balance, not elsewhere classified; R62.7 Adult failure to thrive; N18.9 Chronic kidney disease, unspecified; E11.22 Type 2 diabetes mellitus with diabetic chronic kidney disease; I12.9 Hypertensive chronic kidney disease with stage 1 through stage 4 chronic kidney disease, or unspecified chronic kidney disease; Z74.01 Bed confinement status
CPT/HCPCS: 36415; 36600; 70450; 71045; 74018; 76770; 80048; 80053; 80305; 81001; 82550; 82570; 82728; 82803; 83605; 83615; 83735; 83874; 83880; 84100; 84145; 84156; 84443; 84484; 84550; 85025; 85027; 85378; 86140; 86592; 87040; 87088; 87635; 87804; 92610; 93005; 93970; 94760; 97039; C9803; G0378; J0696; J1100; J1644; J3411; J3490; J7050; J7120; Q0167